=== PATIENT | male | born 1980 | race Hispanic/Latino ===

== ENCOUNTER 2018-08-30 04:45 | Emergency (ER) | payer SELFPAY ==
[2018-08-30 05:02] VITALS: BP 133/74; PULSE 75; RESP 16; TEMP 98.7; O2SAT 99
--- NOTE | 2018-08-30 05:07 | C.PDOC ---
History Of Present Illness 37 year old male is brought to the ED by [employer] for evaluation. Patient admits to doing heroin today, patient also is requesting detox for heroin abuse. Patient is anxious, refused blood work at first. Patient denies SI/HI, hallucinations, CP, SOB, nausea, vomit, injury, fall, trauma. Time Seen by Provider: 08/30/18 05:06 Chief Complaint (Nursing): Substance Abuse History Per: Patient History/Exam Limitations: intoxication Onset/Duration Of Symptoms: Hrs Current Symptoms Are (Timing): Still Present Suicide/Self Injury Attempted (Context): None Modifying Factor(s): Other (heroin) Associated Symptoms: Anxiety. denies: Depression, Suicidal Thoughts, Suicidal Plan Recent travel outside of the [place]: No Additional History Per: Patient, Law Enforcement Past Medical History Reviewed: Historical Data, Nursing Documentation, Vital Signs Vital Signs: Last Vital Signs Temp 98.7 F 08/30/18 04:53 Pulse 75 08/30/18 04:53 Resp 16 08/30/18 04:53 BP 133/74 08/30/18 04:53 Pulse Ox 99 08/30/18 04:53 - Medical History PMH: No Chronic Diseases Surgical History: No Surg Hx Family History: States: Unknown Family Hx - Social History Hx Alcohol Use: No Hx Substance Use: Yes Review Of Systems Constitutional: Negative for: Fever, Chills Cardiovascular: Negative for: Chest Pain Respiratory: Negative for: Shortness of Breath Gastrointestinal: Negative for: Nausea, Vomiting, Abdominal Pain Neurological: Negative for: Weakness, Numbness Psych: Positive for: Anxiety. Negative for: Depression, Suicidal ideation Physical Exam - Physical Exam Appears: Non-toxic, No Acute Distress Skin: Warm, Dry Head: Normacephalic Eye(s): bilateral: Normal Inspection Neck: Supple Chest: Symmetrical Cardiovascular: Rhythm Regular Respiratory: Normal Breath Sounds, No Rales, No Rhonchi, No Wheezing Extremity: Bilateral: Atraumatic, Normal Color And Temperature, Normal ROM Neurological/Psych: Oriented x3, Normal Speech Gait: Steady ED Course And Treatment O2 Sat by Pulse Oximetry: 99 (On RA) Pulse Ox Interpretation: Normal Progress Note: Plan: - Labs. - Crisis eval. - UA. 5:30 AM pt became agitated, combative, treatening to the staff. Kadeem Guajardo called, and patient left the ed. Disposition Counseled Patient/Family Regarding: Studies Performed, Diagnosis - Disposition Disposition: ELOPEMENT - ER ONLY Disposition Time: 05:06 Condition: FAIR Instructions: Drug Abuse and Drug Addiction (DC) Forms: [employer] (Polish) - Clinical Impression Clinical Impression: Drug abuse - Scribe Statement The provider has reviewed the documentation as recorded by the Scribe Binu Thorpe All medical record entries made by the Scribe were at my direction and personally dictated by me. I have reviewed the chart and agree that the record accurately reflects my personal performance of the history, physical exam, medical decision making, and the department course for this patient. I have also personally directed, reviewed, and agree with the discharge instructions and disposition.
== END 2018-08-30 05:15 | disposition left against medical advice (07) ==
LOC: C.ER 04:45
DX: F11.10 Opioid abuse, uncomplicated (principal)